=== PATIENT | male | born 1965 | race Hispanic/Latino ===

== ENCOUNTER 2021-10-12 13:35 | Inpatient (IN) | payer OTHER ==
[~2021-10-12] VITALS: Ht 172.7 cm; Wt 113.5 kg
[2021-10-12] VITALS (7 sets, daily range): BP systolic 104–129; BP diastolic 64–88
[2021-10-12] MEDS ORDERED: SODIUM CHLORIDE 0.9% 1000ML 1,000 ML IV STA (14:07)
[2021-10-12 14:37] LABS: BASOPHILS % 0.2 % (0.0-1.0); HEMATOCRIT 50.7 % (34.2-44.1); HEMOGLOBIN 16.2 g/dL (12.0-16.0); LYMPHOCYTES # (AUTO) 0.7 (1.0-3.2); LYMPHOCYTES % 10.2 % (18.0-39.1); MEAN CORPUSCULAR VOLUME 84.5 fL (81-99); MONOCYTES # (AUTO) 0.5 (0.2-0.8); MONOCYTES % 6.8 % (4.4-11.3); NEUTROPHILS # (AUTO) 5.5 (2.1-6.9); NEUTROPHILS % 82.5 % (38.7-80.0); PLATELET COUNT 155 x10e3/uL (140-360); RED CELL DISTRIBUTION WIDTH 14.8 % (11.7-14.4)
[2021-10-12 14:45] LABS: INR 0.96; PROTHROMBIN TIME 13.5 seconds (11.9-14.5)
[2021-10-12 14:46] LABS: PARTIAL THROMBOPLASTIN TIME 37.7 seconds (23.8-35.5)
[2021-10-12] MEDS: ASCORBIC ACID 500 MG TAB PO SCH (14:47)
[2021-10-12] MEDS: CEFTRIAXONE 2 GM in SODIUM CHLORIDE 0.9% 100 ML IV SCH (14:47)
[2021-10-12] MEDS ORDERED: DEXAMETHASONE SOD PHOS 10 MG/1 ML VIAL IV ONE (15:00)
[2021-10-12 15:36] LABS: ALANINE AMINOTRANSFERASE 43 IU/L (0-55); ALBUMIN 3.1 g/dL (3.5-5.0); ALBUMIN/GLOBULIN RATIO 0.7 (0.8-2.0); ALKALINE PHOSPHATASE 67 IU/L (40-150); BLOOD UREA NITROGEN 48 mg/dL (7-26); BUN/CREATININE RATIO 19 (6-25); CALCIUM 8.8 mg/dL (8.4-10.2); CARBON DIOXIDE 15 mmol/L (22-29); CHLORIDE 101 mmol/L (98-107); CREATINE KINASE 414 IU/L (29-168); EST GLOMERULAR FILTRATION RATE 20 ML/MIN (60-); GLUCOSE 250 mg/dL (74-118); MAGNESIUM 2.1 MG/DL (1.3-2.1); SODIUM 130 mmol/L (136-145)
[2021-10-12] MEDS ORDERED: SODIUM CHLORIDE 0.9% 1000ML 1,000 ML IV ONE (16:15)
[2021-10-12] MEDS: ENOXAPARIN 30 MG/0.3 ML SYR SC SCH (16:31)
[2021-10-12] MEDS: SODIUM CHLORIDE 0.9% 1000ML 1,000 ML IV SCH (18:11)
[2021-10-12] MEDS ORDERED: VASOTEC10 M1 PO (21:59)
[2021-10-12] MEDS ORDERED: ESIDRIX25 MG PO (21:59)
[2021-10-12] MEDS ORDERED: METFORMIN HCL500 MG PO (21:59)
[2021-10-13] VITALS (26 sets, daily range): BP systolic 99–157; BP diastolic 56–88
[2021-10-13 01:21] LABS: CREATINE KINASE 476 IU/L (30-200)
[2021-10-13 04:59] LABS: HEMATOCRIT 47.1 % (38.2-49.6); HEMOGLOBIN 14.9 g/dL (14.0-18.0); LYMPHOCYTES # (AUTO) 0.8 (1.0-3.2); LYMPHOCYTES % 14.8 % (18.0-39.1); MEAN CORPUSCULAR HGB CONC 31.6 g/dL (31-35); MEAN CORPUSCULAR VOLUME 85.5 fL (81-99); MONOCYTES # (AUTO) 0.4 (0.2-0.8); MONOCYTES % 7.7 % (4.4-11.3); NEUTROPHILS # (AUTO) 3.9 (2.1-6.9); NEUTROPHILS % 77.1 % (38.7-80.0); PLATELET COUNT 180 x10e3/uL (140-360); RED BLOOD COUNT 5.51 x10e6/uL (4.3-5.7); RED CELL DISTRIBUTION WIDTH 14.8 % (11.7-14.4)
[2021-10-13 05:40] LABS: ALBUMIN 2.8 g/dL (3.5-5.0); ALBUMIN/GLOBULIN RATIO 0.6 (0.8-2.0); ANION GAP 18.9 mmol/L (8-16); CALCIUM 8.5 mg/dL (8.4-10.2); CHOL/HDL RATIO 3.3 (3.9-4.7); CREATININE, SERUM 2.09 mg/dL (0.72-1.25); POTASSIUM 4.9 mmol/L (3.5-5.1)
[2021-10-13 06:16] LABS: CREATINE KINASE 464 IU/L (30-200); MAGNESIUM 2.4 MG/DL (1.3-2.1); PHOSPHORUS 4.2 MG/DL (2.3-4.7)
[2021-10-13] MEDS: ZINC SULFATE 50 MG CAP PO SCH (08:58)
[2021-10-13] MEDS: DEXAMETHASONE SOD PHOS 10 MG/1 ML VIAL IV SCH (08:58)
[2021-10-13] MEDS: ASCORBIC ACID 500 MG TAB PO SCH ×2 (08:58→17:39)
[2021-10-13] MEDS: SODIUM CHLORIDE 0.9% 1000ML 1,000 ML IV SCH (08:58)
[2021-10-13] MEDS: CEFTRIAXONE 2 GM in SODIUM CHLORIDE 0.9% 100 ML IV SCH (08:58)
[2021-10-13] MEDS ORDERED: DEXTROSE 50% SYRINGE 50 ML IV PRN (09:00)
[2021-10-13] MEDS: INSULIN REGULAR, HUMAN 100 UNIT/1 ML SQ SCH ×3 (12:40→21:19)
[2021-10-13 12:45] LABS: CREATINE KINASE MB 2.6 ng/mL (0-5.0)
[2021-10-13] MEDS ORDERED: REMDESIVIR 200MG 200 MG in SODIUM CHLORIDE 0.9% 100 ML IV ONE (14:00)
[2021-10-13] MEDS ORDERED: REMDESIVIR 100MG 200 MG in SODIUM CHLORIDE 0.9% 100 ML IV ONE (14:00)
[2021-10-13] MEDS ORDERED: SODIUM BICARBONATE 8.4% IV ONE (15:30)
[2021-10-13] MEDS ORDERED: SODIUM CHLORIDE 0.45% IV ONE (15:30)
[2021-10-13] MEDS: ENOXAPARIN 30 MG/0.3 ML SYR SC SCH (17:39)
[2021-10-13] MEDS: SODIUM BICARBONATE 650 MG TAB PO SCH (17:39)
[2021-10-14] VITALS (26 sets, daily range): BP systolic 106–147; BP diastolic 66–97
[2021-10-14 05:08] LABS: BASOPHILS % 0.1 % (0.0-1.0); HEMATOCRIT 44.7 % (38.2-49.6); HEMOGLOBIN 14.6 g/dL (14.0-18.0); LYMPHOCYTES # (AUTO) 0.6 (1.0-3.2); LYMPHOCYTES % 7.1 % (18.0-39.1); MEAN CORPUSCULAR HEMOGLOBIN 27.1 pg (28-32); MEAN CORPUSCULAR HGB CONC 32.7 g/dL (31-35); MEAN CORPUSCULAR VOLUME 82.9 fL (81-99); MONOCYTES # (AUTO) 0.6 (0.2-0.8); MONOCYTES % 6.4 % (4.4-11.3); NEUTROPHILS # (AUTO) 7.7 (2.1-6.9); NEUTROPHILS % 85.3 % (38.7-80.0); PLATELET COUNT 207 x10e3/uL (140-360); RED BLOOD COUNT 5.39 x10e6/uL (4.3-5.7); RED CELL DISTRIBUTION WIDTH 14.6 % (11.7-14.4)
[2021-10-14 05:32] LABS: ALBUMIN 2.6 g/dL (3.5-5.0); ALBUMIN/GLOBULIN RATIO 0.6 (0.8-2.0); ANION GAP 15.3 mmol/L (8-16); CALCIUM 8.8 mg/dL (8.4-10.2); CREATININE, SERUM 1.51 mg/dL (0.72-1.25); POTASSIUM 5.3 mmol/L (3.5-5.1)
[2021-10-14] MEDS: INSULIN REGULAR, HUMAN 100 UNIT/1 ML SQ SCH ×4 (07:37→21:14)
[2021-10-14] MEDS ORDERED: DEXMEDETOMIDINE 400MCG/NS100ML 100 ML IV PRN (07:45)
[2021-10-14] MEDS: DEXAMETHASONE SOD PHOS 10 MG/1 ML VIAL IV SCH (08:22)
[2021-10-14] MEDS: CEFTRIAXONE 2 GM in SODIUM CHLORIDE 0.9% 100 ML IV SCH (08:22)
[2021-10-14] MEDS: ZINC SULFATE 50 MG CAP PO SCH (08:22)
[2021-10-14] MEDS: ASCORBIC ACID 500 MG TAB PO SCH ×2 (08:22→17:52)
[2021-10-14] MEDS: SODIUM BICARBONATE 650 MG TAB PO SCH ×2 (08:22→17:51)
[2021-10-14] MEDS ORDERED: INSULIN GLARGINE 100 UNITS/ML VIAL SQ SCH (09:00)
[2021-10-14] MEDS ORDERED: VECURONIUM BROMIDE FOR INJ 20 MG VIAL ONE (12:35)
[2021-10-14] MEDS ORDERED: WATER STERILE 10 ML VIAL ONE (12:35)
[2021-10-14] MEDS ORDERED: SUCCINYLCHOLINE CHLORIDE 20 MG/ML 10ML VIAL ONE (12:35)
[2021-10-14] MEDS ORDERED: MIDAZOLAM HCL 2 MG/2 ML VIAL ONE (12:35)
[2021-10-14] MEDS ORDERED: ETOMIDATE 2 MG/ML 10 ML INJ IV ONE (12:35)
[2021-10-14] MEDS: REMDESIVIR 100MG 100 MG in SODIUM CHLORIDE 0.9% 100 ML IV SCH (13:59)
[2021-10-14] MEDS: BARICITINIB 2 MG TABLET PO SCH (13:59)
[2021-10-14] MEDS ORDERED: SOD POLYSTYRENE SULFONATE SUSP 15 GM/60 ML BTL PO ONE (15:30)
[2021-10-14] MEDS ORDERED: ENOXAPARIN 30 MG/0.3 ML SYR SC SCH (17:00)
[2021-10-14 17:40] LABS: ABG HCO3 20 mmol/L (22-26); ABG PCO2 31 mmHg (35-45); ABG PH 7.42 (7.35-7.45); ABG PO2 69 mmHg (80-105); ABG TCO2 21
[2021-10-14] MEDS: ENOXAPARIN SOD INJ 40 MG/0.4 ML SYR SC SCH (17:52)
[2021-10-14] MEDS: DEXMEDETOMIDINE 100 ML IV PRN (20:39)
[2021-10-15] VITALS (24 sets, daily range): BP systolic 111–150; BP diastolic 62–101
[2021-10-15 06:36] LABS: BASOPHILS % 0.2 % (0.0-1.0); HEMATOCRIT 47.9 % (38.2-49.6); HEMOGLOBIN 14.9 g/dL (14.0-18.0); LYMPHOCYTES # (AUTO) 0.7 (1.0-3.2); LYMPHOCYTES % 7.3 % (18.0-39.1); MEAN CORPUSCULAR HEMOGLOBIN 26.8 pg (28-32); MEAN CORPUSCULAR HGB CONC 31.1 g/dL (31-35); MONOCYTES # (AUTO) 0.6 (0.2-0.8); MONOCYTES % 5.8 % (4.4-11.3); NEUTROPHILS # (AUTO) 8.5 (2.1-6.9); NEUTROPHILS % 85.8 % (38.7-80.0); PLATELET COUNT 214 x10e3/uL (140-360); RED BLOOD COUNT 5.57 x10e6/uL (4.3-5.7); RED CELL DISTRIBUTION WIDTH 14.9 % (11.7-14.4)
[2021-10-15 07:17] LABS: ALBUMIN 2.6 g/dL (3.5-5.0); ALBUMIN/GLOBULIN RATIO 0.6 (0.8-2.0); ANION GAP 16.6 mmol/L (8-16); CREATININE, SERUM 1.24 mg/dL (0.72-1.25); POTASSIUM 5.6 mmol/L (3.5-5.1)
[2021-10-15] MEDS: INSULIN REGULAR, HUMAN 100 UNIT/1 ML SQ SCH ×6 (07:46→21:30)
[2021-10-15] MEDS ORDERED: INSULIN GLARGINE 100 UNITS/ML VIAL SQ SCH (09:00)
[2021-10-15] MEDS: SODIUM BICARBONATE 650 MG TAB PO SCH ×2 (11:29→17:00)
[2021-10-15] MEDS: ZINC SULFATE 50 MG CAP PO SCH (11:29)
[2021-10-15] MEDS: BARICITINIB 2 MG TABLET PO SCH (11:29)
[2021-10-15] MEDS: CEFTRIAXONE 2 GM in SODIUM CHLORIDE 0.9% 100 ML IV SCH (11:29)
[2021-10-15] MEDS: ASCORBIC ACID 500 MG TAB PO SCH ×2 (11:29→17:00)
[2021-10-15] MEDS: DEXAMETHASONE SOD PHOS 10 MG/1 ML VIAL IV SCH (11:29)
[2021-10-15] MEDS: REMDESIVIR 100MG 100 MG in SODIUM CHLORIDE 0.9% 100 ML IV SCH (14:11)
[2021-10-15] MEDS ORDERED: SOD POLYSTYRENE SULFONATE SUSP 15 GM/60 ML BTL PR NR (14:30)
[2021-10-15] MEDS ORDERED: FUROSEMIDE INJ 10 MG/ML 4 ML VIAL IV NR (14:30)
[2021-10-15] MEDS ORDERED: SODIUM CHLORIDE 0.45% 1,000 ML IV ONE (16:30)
[2021-10-15] MEDS: ENOXAPARIN SOD INJ 40 MG/0.4 ML SYR SC SCH (17:02)
[2021-10-15] MEDS ORDERED: FUROSEMIDE INJ 10 MG/ML 4 ML VIAL ONE (20:43)
[2021-10-16] VITALS (24 sets, daily range): BP systolic 84–147; BP diastolic 49–93
[2021-10-16] MEDS: DEXMEDETOMIDINE 100 ML IV PRN (00:16)
[2021-10-16 06:24] LABS: BASOPHILS % 0.2 % (0.0-1.0); HEMATOCRIT 50.7 % (38.2-49.6); LYMPHOCYTES # (AUTO) 0.7 (1.0-3.2); MEAN CORPUSCULAR HEMOGLOBIN 26.8 pg (28-32); MEAN CORPUSCULAR HGB CONC 31.6 g/dL (31-35); MEAN CORPUSCULAR VOLUME 85.1 fL (81-99); MONOCYTES # (AUTO) 0.7 (0.2-0.8); MONOCYTES % 4.9 % (4.4-11.3); NEUTROPHILS # (AUTO) 12.7 (2.1-6.9); NEUTROPHILS % 88.6 % (38.7-80.0); PLATELET COUNT 205 x10e3/uL (140-360); RED BLOOD COUNT 5.96 x10e6/uL (4.3-5.7); RED CELL DISTRIBUTION WIDTH 14.7 % (11.7-14.4)
[2021-10-16 06:52] LABS: ALBUMIN 2.6 g/dL (3.5-5.0); ALBUMIN/GLOBULIN RATIO 0.6 (0.8-2.0); ANION GAP 17.7 mmol/L (8-16); CALCIUM 8.8 mg/dL (8.4-10.2); CREATININE, SERUM 1.15 mg/dL (0.72-1.25); POTASSIUM 4.7 mmol/L (3.5-5.1)
[2021-10-16] MEDS ORDERED: ROCURONIUM 1250MG/NS 250 250 ML IV PRN (08:15)
[2021-10-16] MEDS ORDERED: PROPOFOL IV EMULSION 10MG/ML 100 ML ONE (08:39)
[2021-10-16] MEDS ORDERED: SODIUM CHLORIDE 0.9% 1000ML 1,000 ML ONE (08:45)
[2021-10-16] MEDS ORDERED: INSULIN GLARGINE 100 UNITS/ML VIAL SQ SCH (09:00)
[2021-10-16] MEDS: ASCORBIC ACID 500 MG TAB PO SCH ×2 (09:00→16:58)
[2021-10-16] MEDS: BARICITINIB 2 MG TABLET PO SCH (09:00)
[2021-10-16] MEDS: ZINC SULFATE 50 MG CAP PO SCH (09:00)
[2021-10-16] MEDS: PROPOFOL IV EMULSION 10MG/ML 100 ML IV SCH (09:15)
[2021-10-16] MEDS ORDERED: SODIUM CHLORIDE 0.45% 1,000 ML IV ONE (09:15)
[2021-10-16] MEDS: FENTANYL 2000MCG/NS 250 250 ML IV PRN ×2 (09:25→17:51)
[2021-10-16] MEDS: MIDAZOLAM HCL 5MG/ML 10ML VIAL 100 ML IV PRN ×3 (09:25→18:51)
[2021-10-16] MEDS: ROCURONIUM 1250MG/NS 250 250 ML IV PRN (09:29)
[2021-10-16] MEDS: CEFTRIAXONE 2 GM in SODIUM CHLORIDE 0.9% 100 ML IV SCH (10:16)
[2021-10-16] MEDS: DEXAMETHASONE SOD PHOS 10 MG/1 ML VIAL IV SCH (10:16)
[2021-10-16 11:58] LABS: ABG PCO2 40 mmHg (35-45); ABG PH 7.36 (7.35-7.45)
[2021-10-16 11:59] LABS: ABG HCO3 23 mmol/L (22-26); ABG PO2 76 mmHg (80-105); ABG TCO2 24
[2021-10-16] MEDS: INSULIN REGULAR, HUMAN 100 UNIT/1 ML SQ SCH ×2 (13:22→17:48)
[2021-10-16] MEDS ORDERED: SODIUM CHLORIDE 0.9% 250ML 500 ML ONE (14:16)
[2021-10-16] MEDS: REMDESIVIR 100MG 100 MG in SODIUM CHLORIDE 0.9% 100 ML IV SCH (14:17)
[2021-10-16] MEDS: ENOXAPARIN SOD INJ 40 MG/0.4 ML SYR SC SCH (16:58)
[2021-10-17] VITALS (28 sets, daily range): BP systolic 102–145; BP diastolic 45–76
[2021-10-17] MEDS: INSULIN REGULAR, HUMAN 100 UNIT/1 ML SQ SCH ×6 (00:44→23:42)
[2021-10-17] MEDS: MIDAZOLAM HCL 5MG/ML 10ML VIAL 100 ML IV PRN ×3 (04:30→19:48)
[2021-10-17] MEDS: FENTANYL 2000MCG/NS 250 250 ML IV PRN ×3 (04:30→19:49)
[2021-10-17 06:17] LABS: BASOPHILS % 0.1 % (0.0-1.0); EOSINOPHILS % 0.1 % (0.0-6.0); HEMATOCRIT 47.2 % (38.2-49.6); HEMOGLOBIN 14.8 g/dL (14.0-18.0); LYMPHOCYTES # (AUTO) 0.6 (1.0-3.2); LYMPHOCYTES % 4.2 % (18.0-39.1); MEAN CORPUSCULAR HGB CONC 31.4 g/dL (31-35); MEAN CORPUSCULAR VOLUME 86.1 fL (81-99); MONOCYTES # (AUTO) 0.6 (0.2-0.8); MONOCYTES % 3.9 % (4.4-11.3); NEUTROPHILS # (AUTO) 12.6 (2.1-6.9); NEUTROPHILS % 89.4 % (38.7-80.0); PLATELET COUNT 211 x10e3/uL (140-360); RED BLOOD COUNT 5.48 x10e6/uL (4.3-5.7); RED CELL DISTRIBUTION WIDTH 14.6 % (11.7-14.4)
[2021-10-17 07:00] LABS: ALBUMIN 2.1 g/dL (3.5-5.0); ALBUMIN/GLOBULIN RATIO 0.6 (0.8-2.0); ANION GAP 15.2 mmol/L (8-16); CALCIUM 7.9 mg/dL (8.4-10.2); CREATININE, SERUM 1.2 mg/dL (0.72-1.25); POTASSIUM 5.2 mmol/L (3.5-5.1)
[2021-10-17] MEDS: DEXAMETHASONE SOD PHOS 10 MG/1 ML VIAL IV SCH (08:46)
[2021-10-17] MEDS: CEFTRIAXONE 2 GM in SODIUM CHLORIDE 0.9% 100 ML IV SCH (08:46)
[2021-10-17] MEDS: ASCORBIC ACID 500 MG TAB PO SCH ×2 (08:47→18:32)
[2021-10-17] MEDS: ZINC SULFATE 50 MG CAP PO SCH (08:47)
[2021-10-17] MEDS: BARICITINIB 2 MG TABLET PO SCH (08:47)
[2021-10-17] MEDS: ROCURONIUM 1250MG/NS 250 250 ML IV PRN (08:52)
[2021-10-17] MEDS ORDERED: INSULIN GLARGINE 100 UNITS/ML VIAL SQ SCH (09:00)
[2021-10-17] MEDS: PROPOFOL IV EMULSION 10MG/ML 100 ML IV SCH (09:15)
[2021-10-17 10:24] LABS: ABG HCO3 24 mmol/L (22-26); ABG PCO2 48 mmHg (35-45); ABG PH 7.31 (7.35-7.45); ABG PO2 65 mmHg (80-105); ABG TCO2 25
[2021-10-17 12:49] LABS: ABG PH 7.36 (7.35-7.45)
[2021-10-17 12:50] LABS: ABG HCO3 24 mmol/L (22-26); ABG PCO2 42 mmHg (35-45); ABG PO2 59 mmHg (80-105); ABG TCO2 25
[2021-10-17] MEDS ORDERED: SOD POLYSTYRENE SULFONATE SUSP 15 GM/60 ML BTL PO ONE (13:00)
[2021-10-17] MEDS: REMDESIVIR 100MG 100 MG in SODIUM CHLORIDE 0.9% 100 ML IV SCH (15:01)
[2021-10-17] MEDS: ENOXAPARIN SOD INJ 40 MG/0.4 ML SYR SC SCH (18:32)
[2021-10-18] VITALS (27 sets, daily range): BP systolic 109–141; BP diastolic 63–76
[2021-10-18] MEDS: MIDAZOLAM HCL 5MG/ML 10ML VIAL 100 ML IV PRN ×5 (00:33→20:41)
[2021-10-18] MEDS: FENTANYL 2000MCG/NS 250 250 ML IV PRN ×3 (04:45→20:41)
[2021-10-18 05:15] LABS: BASOPHILS % 0.3 % (0.0-1.0); EOSINOPHILS % 0.3 % (0.0-6.0); HEMATOCRIT 45.6 % (38.2-49.6); HEMOGLOBIN 14.1 g/dL (14.0-18.0); LYMPHOCYTES # (AUTO) 0.8 (1.0-3.2); LYMPHOCYTES % 6.9 % (18.0-39.1); MEAN CORPUSCULAR HEMOGLOBIN 26.9 pg (28-32); MEAN CORPUSCULAR HGB CONC 30.9 g/dL (31-35); MEAN CORPUSCULAR VOLUME 86.9 fL (81-99); MONOCYTES # (AUTO) 0.6 (0.2-0.8); MONOCYTES % 5.1 % (4.4-11.3); NEUTROPHILS # (AUTO) 9.2 (2.1-6.9); NEUTROPHILS % 82.8 % (38.7-80.0); PLATELET COUNT 231 x10e3/uL (140-360); RED BLOOD COUNT 5.25 x10e6/uL (4.3-5.7)
[2021-10-18 05:35] LABS: ALBUMIN/GLOBULIN RATIO 0.6 (0.8-2.0); ANION GAP 11.1 mmol/L (8-16); CALCIUM 7.7 mg/dL (8.4-10.2); CREATININE, SERUM 1.23 mg/dL (0.72-1.25); POTASSIUM 5.1 mmol/L (3.5-5.1)
[2021-10-18] MEDS: INSULIN REGULAR, HUMAN 100 UNIT/1 ML SQ SCH ×3 (06:07→17:52)
[2021-10-18 07:38] LABS: ABG HCO3 23 mmol/L (22-26); ABG PCO2 36 mmHg (35-45); ABG PH 7.42 (7.35-7.45); ABG PO2 49 mmHg (80-105); ABG TCO2 25
[2021-10-18] MEDS: PROPOFOL IV EMULSION 10MG/ML 100 ML IV SCH (08:55)
[2021-10-18] MEDS: POLYETHYLENE GLYCOL 3350 17 GM PACK PO SCH (08:59)
[2021-10-18] MEDS: DEXAMETHASONE SOD PHOS 10 MG/1 ML VIAL IV SCH (08:59)
[2021-10-18] MEDS: BARICITINIB 2 MG TABLET PO SCH (08:59)
[2021-10-18] MEDS ORDERED: INSULIN GLARGINE 100 UNITS/ML VIAL SQ SCH (09:00)
[2021-10-18] MEDS: ASCORBIC ACID 500 MG TAB PO SCH ×2 (09:00→17:50)
[2021-10-18] MEDS: ZINC SULFATE 50 MG CAP PO SCH (09:00)
[2021-10-18] MEDS ORDERED: BISACODYL 10 MG SUPP PR ONE (09:00)
[2021-10-18] MEDS: ROCURONIUM 1250MG/NS 250 250 ML IV PRN (10:38)
[2021-10-18] MEDS: ENOXAPARIN SOD INJ 40 MG/0.4 ML SYR SC SCH (17:51)
[2021-10-19] VITALS (25 sets, daily range): BP systolic 104–130; BP diastolic 56–72
[2021-10-19] MEDS: INSULIN REGULAR, HUMAN 100 UNIT/1 ML SQ SCH ×2 (00:35→05:40)
[2021-10-19] MEDS: MIDAZOLAM HCL 5MG/ML 10ML VIAL 100 ML IV PRN ×5 (02:16→23:57)
[2021-10-19] MEDS: FENTANYL 2000MCG/NS 250 250 ML IV PRN ×3 (04:44→21:55)
[2021-10-19 05:27] LABS: BASOPHILS % 0.3 % (0.0-1.0); EOSINOPHILS % 0.2 % (0.0-6.0); HEMATOCRIT 45.5 % (38.2-49.6); LYMPHOCYTES # (AUTO) 0.8 (1.0-3.2); LYMPHOCYTES % 6.3 % (18.0-39.1); MEAN CORPUSCULAR HGB CONC 30.8 g/dL (31-35); MEAN CORPUSCULAR VOLUME 87.8 fL (81-99); MONOCYTES # (AUTO) 0.9 (0.2-0.8); MONOCYTES % 6.9 % (4.4-11.3); NEUTROPHILS # (AUTO) 10.2 (2.1-6.9); NEUTROPHILS % 80.9 % (38.7-80.0); PLATELET COUNT 246 x10e3/uL (140-360); RED BLOOD COUNT 5.18 x10e6/uL (4.3-5.7); RED CELL DISTRIBUTION WIDTH 14.8 % (11.7-14.4)
[2021-10-19 06:06] LABS: ALBUMIN/GLOBULIN RATIO 0.6 (0.8-2.0); ANION GAP 8.6 mmol/L (8-16); CALCIUM 8.1 mg/dL (8.4-10.2); CREATININE, SERUM 1.21 mg/dL (0.72-1.25); POTASSIUM 5.6 mmol/L (3.5-5.1)
[2021-10-19 08:03] LABS: ABG PCO2 41 mmHg (35-45); ABG PH 7.41 (7.35-7.45)
[2021-10-19 08:04] LABS: ABG HCO3 26 mmol/L (22-26); ABG PO2 96 mmHg (80-105); ABG TCO2 27
[2021-10-19] MEDS ORDERED: ACETAMINOPHEN 325 MG TAB ONE (08:07)
[2021-10-19] MEDS ORDERED: INSULIN REGULAR, HUMAN 3ML VL 100 UNIT in SODIUM CHLORIDE 0.9% 99 ML IV SCH ×2 (08:30)
[2021-10-19] MEDS ORDERED: DEXTROSE 50% SYRINGE 50 ML IV PRN (08:30)
[2021-10-19] MEDS ORDERED: SOD POLYSTYRENE SULFONATE SUSP 15 GM/60 ML BTL PO ONE (09:00)
[2021-10-19] MEDS ORDERED: INSULIN GLARGINE 100 UNITS/ML VIAL SQ SCH (09:00)
[2021-10-19] MEDS: ASCORBIC ACID 500 MG TAB PO SCH ×2 (09:10→16:09)
[2021-10-19] MEDS: ACETAMINOPHEN 325 MG TAB PO PRN (09:10)
[2021-10-19] MEDS: BARICITINIB 2 MG TABLET PO SCH (09:10)
[2021-10-19] MEDS: ZINC SULFATE 50 MG CAP PO SCH (09:10)
[2021-10-19] MEDS: POLYETHYLENE GLYCOL 3350 17 GM PACK PO SCH (09:34)
[2021-10-19] MEDS: PROPOFOL IV EMULSION 10MG/ML 100 ML IV SCH (09:35)
[2021-10-19] MEDS: ROCURONIUM 1250MG/NS 250 250 ML IV PRN (12:28)
[2021-10-19] MEDS ORDERED: FUROSEMIDE INJ 10 MG/ML 4 ML VIAL IV ONE (16:00)
[2021-10-19] MEDS: ENOXAPARIN SOD INJ 40 MG/0.4 ML SYR SC SCH (16:09)
[2021-10-20] VITALS (26 sets, daily range): BP systolic 98–162; BP diastolic 41–83
[2021-10-20] MEDS: INSULIN REGULAR, HUMAN 3ML VL 100 UNIT in SODIUM CHLORIDE 0.9% 99 ML IV SCH ×2 (04:00)
[2021-10-20] MEDS: MIDAZOLAM HCL 5MG/ML 10ML VIAL 100 ML IV PRN ×4 (06:00→21:17)
[2021-10-20] MEDS: FENTANYL 2000MCG/NS 250 250 ML IV PRN ×2 (06:17→14:12)
[2021-10-20 06:39] LABS: BASOPHILS % 0.5 % (0.0-1.0); EOSINOPHILS # (AUTO) 0.3 (0.0-0.4); HEMATOCRIT 34.9 % (38.2-49.6); HEMOGLOBIN 10.7 g/dL (14.0-18.0); LYMPHOCYTES # (AUTO) 2.3 (1.0-3.2); LYMPHOCYTES % 28.4 % (18.0-39.1); MEAN CORPUSCULAR HEMOGLOBIN 29.7 pg (28-32); MEAN CORPUSCULAR HGB CONC 30.7 g/dL (31-35); MEAN CORPUSCULAR VOLUME 96.9 fL (81-99); MONOCYTES # (AUTO) 0.3 (0.2-0.8); MONOCYTES % 3.5 % (4.4-11.3); NEUTROPHILS % 60.3 % (38.7-80.0); PLATELET COUNT 401 x10e3/uL (140-360); RED CELL DISTRIBUTION WIDTH 14.4 % (11.7-14.4)
[2021-10-20 07:13] LABS: MAGNESIUM 2.3 MG/DL (1.3-2.1); PHOSPHORUS 3.3 MG/DL (2.3-4.7)
[2021-10-20 07:16] LABS: ALBUMIN 1.9 g/dL (3.5-5.0); ALBUMIN/GLOBULIN RATIO 0.4 (0.8-2.0); CALCIUM 8.3 mg/dL (8.4-10.2); CREATININE, SERUM 0.55 mg/dL (0.72-1.25)
[2021-10-20] MEDS: POLYETHYLENE GLYCOL 3350 17 GM PACK PO SCH (08:02)
[2021-10-20] MEDS: BARICITINIB 2 MG TABLET PO SCH (08:03)
[2021-10-20] MEDS: ASCORBIC ACID 500 MG TAB PO SCH ×2 (08:03→16:41)
[2021-10-20] MEDS: PROPOFOL IV EMULSION 10MG/ML 100 ML IV SCH (08:03)
[2021-10-20] MEDS: ZINC SULFATE 50 MG CAP PO SCH (08:03)
[2021-10-20 08:54] LABS: ABG HCO3 26 mmol/L (22-26); ABG PCO2 40 mmHg (35-45); ABG PH 7.42 (7.35-7.45); ABG PO2 92 mmHg (80-105); ABG TCO2 27
[2021-10-20] MEDS ORDERED: ENOXAPARIN SODIUM INJ 100 MG/ML SYR SC SCH (09:30)
[2021-10-20] MEDS: ACETAMINOPHEN 325 MG TAB PO PRN ×2 (10:12→21:15)
[2021-10-20 13:58] LABS: ABG PCO2 43 mmHg (35-45); ABG PH 7.39 (7.35-7.45); ABG PO2 85 mmHg (80-105)
[2021-10-20 13:59] LABS: ABG HCO3 26 mmol/L (22-26); ABG TCO2 27
[2021-10-20] MEDS: ROCURONIUM 1250MG/NS 250 250 ML IV PRN (14:02)
[2021-10-20] MEDS: ENOXAPARIN SODIUM INJ 100 MG/ML SYR SC SCH (22:40)
[2021-10-21] VITALS (25 sets, daily range): BP systolic 109–170; BP diastolic 56–91
[2021-10-21] MEDS: MIDAZOLAM HCL 5MG/ML 10ML VIAL 100 ML IV PRN ×4 (03:30→21:51)
[2021-10-21] MEDS: INSULIN REGULAR, HUMAN 3ML VL 100 UNIT in SODIUM CHLORIDE 0.9% 99 ML IV SCH ×2 (04:00)
[2021-10-21] MEDS ORDERED: ACETAMINOPHEN 1000 MG/100 ML IV STA (04:03)
[2021-10-21 04:26] LABS: BASOPHILS % 0.3 % (0.0-1.0); EOSINOPHILS # (AUTO) 0.2 (0.0-0.4); HEMATOCRIT 47.2 % (38.2-49.6); HEMOGLOBIN 14.1 g/dL (14.0-18.0); LYMPHOCYTES # (AUTO) 0.8 (1.0-3.2); LYMPHOCYTES % 5.4 % (18.0-39.1); MEAN CORPUSCULAR HEMOGLOBIN 27.1 pg (28-32); MEAN CORPUSCULAR HGB CONC 29.9 g/dL (31-35); MONOCYTES % 6.3 % (4.4-11.3); NEUTROPHILS # (AUTO) 12.9 (2.1-6.9); NEUTROPHILS % 84.5 % (38.7-80.0); PLATELET COUNT 281 x10e3/uL (140-360); RED BLOOD COUNT 5.21 x10e6/uL (4.3-5.7); RED CELL DISTRIBUTION WIDTH 15.5 % (11.7-14.4)
[2021-10-21 04:34] LABS: MEAN CORPUSCULAR VOLUME 90.6 fL (81-99)
[2021-10-21 04:45] LABS: ALBUMIN 1.8 g/dL (3.5-5.0); ALBUMIN/GLOBULIN RATIO 0.5 (0.8-2.0); ANION GAP 14.7 mmol/L (8-16); CALCIUM 8.4 mg/dL (8.4-10.2); POTASSIUM 4.7 mmol/L (3.5-5.1)
[2021-10-21 04:47] LABS: CREATININE, SERUM 1.05 mg/dL (0.72-1.25)
[2021-10-21 04:56] LABS: MAGNESIUM 1.7 MG/DL (1.3-2.1); PHOSPHORUS 3.5 MG/DL (2.3-4.7)
[2021-10-21] MEDS: PROPOFOL IV EMULSION 10MG/ML 100 ML IV SCH ×3 (05:30→21:50)
[2021-10-21] MEDS ORDERED: ACETAMINOPHEN 1000 MG/100 ML 100 ML IV ONE (07:12)
[2021-10-21] MEDS: ZINC SULFATE 50 MG CAP PO SCH (08:45)
[2021-10-21] MEDS: POLYETHYLENE GLYCOL 3350 17 GM PACK PO SCH (08:45)
[2021-10-21] MEDS: ASCORBIC ACID 500 MG TAB PO SCH ×2 (08:45→17:30)
[2021-10-21] MEDS: ENOXAPARIN SODIUM INJ 100 MG/ML SYR SC SCH ×2 (08:46→21:30)
[2021-10-21] MEDS: FENTANYL 2000MCG/NS 250 250 ML IV PRN ×2 (08:47→16:11)
[2021-10-21 09:59] LABS: ABG HCO3 25 mmol/L (22-26); ABG PCO2 46 mmHg (35-45); ABG PH 7.34 (7.35-7.45); ABG PO2 66 mmHg (80-105); ABG TCO2 26
[2021-10-21] MEDS ORDERED: DEXTROSE 5% 1,000 ML IV ONE (15:15)
[2021-10-21] MEDS ORDERED: MAGNESIUM SULFATE 2GM/50ML 50 ML IV ONE (15:15)
[2021-10-21] MEDS: ROCURONIUM 1250MG/NS 250 250 ML IV PRN (16:12)
[2021-10-21] MEDS: PIPERACILLIN/TAZOBACTAM 3.375 GM in SODIUM CHLORIDE 0.9% 50ML 50 ML IV SCH ×2 (16:14→21:30)
[2021-10-22] VITALS (24 sets, daily range): BP systolic 101–146; BP diastolic 48–80
[2021-10-22] MEDS: ACETAMINOPHEN 325 MG TAB PO PRN (00:50)
[2021-10-22] MEDS: FENTANYL 2000MCG/NS 250 250 ML IV PRN ×3 (02:45→21:22)
[2021-10-22] MEDS: PROPOFOL IV EMULSION 10MG/ML 100 ML IV SCH ×4 (03:09→18:55)
[2021-10-22] MEDS: INSULIN REGULAR, HUMAN 3ML VL 100 UNIT in SODIUM CHLORIDE 0.9% 99 ML IV SCH ×2 (04:40)
[2021-10-22] MEDS: MIDAZOLAM HCL 5MG/ML 10ML VIAL 100 ML IV PRN ×2 (04:43→11:24)
[2021-10-22] MEDS: PIPERACILLIN/TAZOBACTAM 3.375 GM in SODIUM CHLORIDE 0.9% 50ML 50 ML IV SCH ×3 (05:23→22:45)
[2021-10-22 05:53] LABS: BASOPHILS % 0.2 % (0.0-1.0); EOSINOPHILS # (AUTO) 0.1 (0.0-0.4); EOSINOPHILS % 0.8 % (0.0-6.0); HEMATOCRIT 44.5 % (38.2-49.6); LYMPHOCYTES # (AUTO) 0.7 (1.0-3.2); LYMPHOCYTES % 3.9 % (18.0-39.1); MEAN CORPUSCULAR HEMOGLOBIN 27.1 pg (28-32); MEAN CORPUSCULAR HGB CONC 29.2 g/dL (31-35); MEAN CORPUSCULAR VOLUME 92.9 fL (81-99); MONOCYTES # (AUTO) 0.6 (0.2-0.8); MONOCYTES % 3.3 % (4.4-11.3); NEUTROPHILS % 90.8 % (38.7-80.0); PLATELET COUNT 232 x10e3/uL (140-360); RED BLOOD COUNT 4.79 x10e6/uL (4.3-5.7); RED CELL DISTRIBUTION WIDTH 15.8 % (11.7-14.4)
[2021-10-22 06:32] LABS: ALBUMIN 1.4 g/dL (3.5-5.0); ALBUMIN/GLOBULIN RATIO 0.3 (0.8-2.0); ANION GAP 12.2 mmol/L (8-16); CALCIUM 8.2 mg/dL (8.4-10.2); CREATININE, SERUM 1.65 mg/dL (0.72-1.25); POTASSIUM 5.2 mmol/L (3.5-5.1)
[2021-10-22] MEDS: ENOXAPARIN SODIUM INJ 100 MG/ML SYR SC SCH ×2 (08:21→21:45)
[2021-10-22 08:36] LABS: ABG PCO2 56 mmHg (35-45); ABG PH 7.27 (7.35-7.45); ABG PO2 56 mmHg (80-105)
[2021-10-22 08:37] LABS: ABG HCO3 25 mmol/L (22-26); ABG TCO2 27
[2021-10-22] MEDS ORDERED: BALSAM PERU/CASTOR OIL 60 GM OINT...G. TP SCH (09:00)
[2021-10-22] MEDS: ASCORBIC ACID 500 MG TAB PO SCH ×2 (09:16→16:52)
[2021-10-22] MEDS: ZINC SULFATE 50 MG CAP PO SCH (09:16)
[2021-10-22] MEDS: BALSAM PERU/CASTOR OIL 60 GM OINT...G. TP SCH (09:16)
[2021-10-22] MEDS: POLYETHYLENE GLYCOL 3350 17 GM PACK PO SCH (09:16)
[2021-10-22] MEDS ORDERED: SODIUM CHLORIDE 0.9% 250ML 500 ML IV PRN (11:00)
[2021-10-22] MEDS ORDERED: HEPARIN SOD (PORCINE) 1000 UNIT/ML SDV IV PRN (11:00)
[2021-10-22] MEDS ORDERED: MANNITOL 25% 12.5GM/50 ML VIAL IV PRN (11:00)
[2021-10-22] MEDS ORDERED: ALBUMIN 25% 12.5GM 0.25 GM/ML BTL IV PRN (11:00)
[2021-10-22] MEDS ORDERED: SODIUM CHLORIDE 0.9% 1000ML 2,000 ML IV PRN (11:00)
[2021-10-22 12:13] LABS: LYMPHOCYTES % (MANUAL) 4 % (19-48); MONOCYTES % (MANUAL) 3 % (3.4-9.0); NEUTROPHILS % (MANUAL) 93 % (40-74); PLATELET ESTIMATE ADEQUATE; PLATELET MORPHOLOGY COMMENT NORMAL; RBC MORPHOLOGY COMMENT NORMAL
[2021-10-22] MEDS ORDERED: NOREPINEPHRINE 8 MG/D5W 250 ML 250 ML ONE (13:29)
[2021-10-22] MEDS: NOREPINEPHRINE 8 MG/D5W 250 ML 250 ML IV SCH (13:31)
[2021-10-22] MEDS: ROCURONIUM 1250MG/NS 250 250 ML IV PRN (18:56)
[2021-10-22] MEDS ORDERED: LACTULOSE SYRUP 20 GM/30 ML UDC PO ONE (19:30)
[2021-10-22] MEDS: ACETAMINOPHEN 325 MG/10 ML UDC NG PRN (23:17)
[2021-10-23] VITALS (26 sets, daily range): BP systolic 89–147; BP diastolic 40–70
[2021-10-23] MEDS: MIDAZOLAM HCL 5MG/ML 10ML VIAL 100 ML IV PRN ×4 (00:19→18:05)
[2021-10-23] MEDS: PROPOFOL IV EMULSION 10MG/ML 100 ML IV SCH ×2 (05:50→18:04)
[2021-10-23] MEDS: FENTANYL 2000MCG/NS 250 250 ML IV PRN ×2 (05:54→15:39)
[2021-10-23 07:07] LABS: BASOPHILS # (AUTO) 0.1 (0.0-0.1); BASOPHILS % 0.3 % (0.0-1.0); EOSINOPHILS # (AUTO) 0.2 (0.0-0.4); HEMOGLOBIN 12.3 g/dL (14.0-18.0); LYMPHOCYTES # (AUTO) 0.8 (1.0-3.2); LYMPHOCYTES % 4.3 % (18.0-39.1); MEAN CORPUSCULAR HEMOGLOBIN 27.4 pg (28-32); MEAN CORPUSCULAR HGB CONC 28.6 g/dL (31-35); MEAN CORPUSCULAR VOLUME 95.8 fL (81-99); MONOCYTES % 4.9 % (4.4-11.3); NEUTROPHILS % 87.5 % (38.7-80.0); PLATELET COUNT 266 x10e3/uL (140-360); RED BLOOD COUNT 4.49 x10e6/uL (4.3-5.7); RED CELL DISTRIBUTION WIDTH 16.3 % (11.7-14.4)
[2021-10-23 07:22] LABS: ALBUMIN 1.3 g/dL (3.5-5.0); ALBUMIN/GLOBULIN RATIO 0.3 (0.8-2.0); ANION GAP 18.8 mmol/L (8-16); CALCIUM 8.4 mg/dL (8.4-10.2); CREATININE, SERUM 4.21 mg/dL (0.72-1.25); POTASSIUM 5.8 mmol/L (3.5-5.1)
[2021-10-23] MEDS: BALSAM PERU/CASTOR OIL 60 GM OINT...G. TP SCH (09:00)
[2021-10-23 09:02] LABS: ABG PH 7.16 (7.35-7.45)
[2021-10-23 09:03] LABS: ABG HCO3 26 mmol/L (22-26); ABG PCO2 73 mmHg (35-45); ABG PO2 49 mmHg (80-105); ABG TCO2 28
[2021-10-23] MEDS: POLYETHYLENE GLYCOL 3350 17 GM PACK PO SCH (09:19)
[2021-10-23] MEDS: PIPERACILLIN/TAZOBACTAM 3.375 GM in SODIUM CHLORIDE 0.9% 50ML 50 ML IV SCH ×2 (09:19→21:16)
[2021-10-23] MEDS: ZINC SULFATE 50 MG CAP PO SCH (09:19)
[2021-10-23] MEDS: ASCORBIC ACID 500 MG TAB PO SCH ×2 (09:19→16:59)
[2021-10-23] MEDS ORDERED: ACETAMINOPHEN 1000 MG/100 ML IV ONE (09:30)
[2021-10-23] MEDS: LINEZOLID 600 MG/D5W 300ML 300 ML IV SCH ×2 (10:50→22:20)
[2021-10-23] MEDS: HEPARIN 25,000 UNIT 1,500 UNIT in DEXTROSE 5% 250ML 250 ML IV SCH (10:55)
[2021-10-23] MEDS: NOREPINEPHRINE 8 MG/D5W 250 ML 250 ML IV SCH ×2 (11:25→18:04)
[2021-10-23 11:51] LABS: ABG HCO3 24 mmol/L (22-26); ABG PCO2 60 mmHg (35-45); ABG PH 7.21 (7.35-7.45); ABG PO2 60 mmHg (80-105); ABG TCO2 26
[2021-10-23] MEDS: INSULIN REGULAR, HUMAN 3ML VL 100 UNIT in SODIUM CHLORIDE 0.9% 99 ML IV SCH ×4 (16:31→21:18)
[2021-10-23] MEDS: ROCURONIUM 1250MG/NS 250 250 ML IV PRN (18:04)
[2021-10-24] VITALS (28 sets, daily range): BP systolic 77–134; BP diastolic 48–72
[2021-10-24] MEDS: INSULIN REGULAR, HUMAN 3ML VL 100 UNIT in SODIUM CHLORIDE 0.9% 99 ML IV SCH ×4 (01:00→05:07)
[2021-10-24] MEDS: FENTANYL 2000MCG/NS 250 250 ML IV PRN ×3 (01:09→18:27)
[2021-10-24] MEDS: MIDAZOLAM HCL 5MG/ML 10ML VIAL 100 ML IV PRN ×4 (02:02→20:20)
[2021-10-24] MEDS: PROPOFOL IV EMULSION 10MG/ML 100 ML IV SCH ×2 (02:54→12:22)
[2021-10-24] MEDS: ACETAMINOPHEN 325 MG/10 ML UDC NG PRN ×2 (04:50→15:18)
[2021-10-24 05:57] LABS: BASOPHILS # (AUTO) 0.1 (0.0-0.1); BASOPHILS % 0.3 % (0.0-1.0); EOSINOPHILS # (AUTO) 0.2 (0.0-0.4); EOSINOPHILS % 1.2 % (0.0-6.0); HEMATOCRIT 38.3 % (38.2-49.6); HEMOGLOBIN 11.2 g/dL (14.0-18.0); LYMPHOCYTES # (AUTO) 0.8 (1.0-3.2); LYMPHOCYTES % 3.9 % (18.0-39.1); MEAN CORPUSCULAR HGB CONC 29.2 g/dL (31-35); MEAN CORPUSCULAR VOLUME 92.3 fL (81-99); MONOCYTES # (AUTO) 1.4 (0.2-0.8); MONOCYTES % 6.9 % (4.4-11.3); NEUTROPHILS # (AUTO) 17.1 (2.1-6.9); NEUTROPHILS % 84.9 % (38.7-80.0); PLATELET COUNT 301 x10e3/uL (140-360); RED BLOOD COUNT 4.15 x10e6/uL (4.3-5.7); RED CELL DISTRIBUTION WIDTH 16.1 % (11.7-14.4)
[2021-10-24] MEDS: NOREPINEPHRINE 8 MG/D5W 250 ML 250 ML IV SCH ×4 (06:18→23:00)
[2021-10-24 06:26] LABS: ALBUMIN 1.2 g/dL (3.5-5.0); ALBUMIN/GLOBULIN RATIO 0.2 (0.8-2.0); CREATININE, SERUM 4.66 mg/dL (0.72-1.25)
[2021-10-24 06:45] LABS: ABG PH 7.25 (7.35-7.45)
[2021-10-24 06:46] LABS: ABG HCO3 24 mmol/L (22-26); ABG PCO2 55 mmHg (35-45); ABG PO2 53 mmHg (80-105); ABG TCO2 26
[2021-10-24] MEDS ORDERED: HEPARIN 25,000 UNIT DRIP IV ONE (07:20)
[2021-10-24] MEDS: POLYETHYLENE GLYCOL 3350 17 GM PACK PO SCH (08:04)
[2021-10-24] MEDS: PIPERACILLIN/TAZOBACTAM 3.375 GM in SODIUM CHLORIDE 0.9% 50ML 50 ML IV SCH ×2 (08:04→20:43)
[2021-10-24] MEDS: ASCORBIC ACID 500 MG TAB PO SCH ×2 (08:04→16:02)
[2021-10-24] MEDS: ZINC SULFATE 50 MG CAP PO SCH (08:04)
[2021-10-24] MEDS: BALSAM PERU/CASTOR OIL 60 GM OINT...G. TP SCH (08:04)
[2021-10-24 08:07] LABS: EOSINOPHILS % (MANUAL) 1 % (0-7); LYMPHOCYTES % (MANUAL) 4 % (19-48); MONOCYTES % (MANUAL) 6 % (3.4-9.0); NEUTROPHILS % (MANUAL) 89 % (40-74); PLATELET ESTIMATE ADEQUATE
[2021-10-24 08:08] LABS: PLATELET MORPHOLOGY COMMENT NORMAL; RBC MORPHOLOGY COMMENT NORMAL
[2021-10-24] MEDS: LINEZOLID 600 MG/D5W 300ML 300 ML IV SCH ×2 (09:39→22:42)
[2021-10-24] MEDS ORDERED: MAGNESIUM HYDROXIDE 30 ML UDC PO ONE (11:00)
[2021-10-24] MEDS ORDERED: BISACODYL 10 MG SUPP PR ONE (11:00)
[2021-10-24 12:25] LABS: ABG HCO3 30 mmol/L (22-26); ABG PCO2 63 mmHg (35-45); ABG PH 7.29 (7.35-7.45); ABG PO2 43 mmHg (80-105); ABG TCO2 32
[2021-10-24] MEDS: HEPARIN 25,000 UNIT 1,500 UNIT in DEXTROSE 5% 250ML 250 ML IV SCH (12:26)
[2021-10-24] MEDS ORDERED: VASOPRESSIN 60 UNIT in DEXTROSE 5% 50ML 57 ML IV PRN (14:30)
[2021-10-24] MEDS ORDERED: SODIUM CHLORIDE 0.9% 250ML 250 ML ONE (20:16)
[2021-10-24] MEDS: ROCURONIUM 1250MG/NS 250 250 ML IV PRN (23:00)
[2021-10-25] VITALS (28 sets, daily range): BP systolic 85–129; BP diastolic 48–76
[2021-10-25] MEDS: INSULIN REGULAR, HUMAN 3ML VL 100 UNIT in SODIUM CHLORIDE 0.9% 99 ML IV SCH ×2 (00:47)
[2021-10-25] MEDS ORDERED: SODIUM CHLORIDE 0.9% 1000ML 1,000 ML ONE (02:10)
[2021-10-25] MEDS: MIDAZOLAM HCL 5MG/ML 10ML VIAL 100 ML IV PRN ×4 (02:33→20:30)
[2021-10-25] MEDS: FENTANYL 2000MCG/NS 250 250 ML IV PRN ×3 (03:25→21:19)
[2021-10-25] MEDS: NOREPINEPHRINE 8 MG/D5W 250 ML 250 ML IV SCH ×2 (03:25→20:42)
[2021-10-25 05:52] LABS: BASOPHILS # (AUTO) 0.1 (0.0-0.1); BASOPHILS % 0.4 % (0.0-1.0); EOSINOPHILS # (AUTO) 0.2 (0.0-0.4); EOSINOPHILS % 0.9 % (0.0-6.0); HEMATOCRIT 30.8 % (38.2-49.6); HEMOGLOBIN 9.7 g/dL (14.0-18.0); LYMPHOCYTES # (AUTO) 1.3 (1.0-3.2); LYMPHOCYTES % 6.5 % (18.0-39.1); MEAN CORPUSCULAR HEMOGLOBIN 27.3 pg (28-32); MEAN CORPUSCULAR HGB CONC 31.5 g/dL (31-35); MEAN CORPUSCULAR VOLUME 86.8 fL (81-99); MONOCYTES # (AUTO) 2.1 (0.2-0.8); MONOCYTES % 10.4 % (4.4-11.3); NEUTROPHILS % 78.1 % (38.7-80.0); PLATELET COUNT 300 x10e3/uL (140-360); RED BLOOD COUNT 3.55 x10e6/uL (4.3-5.7); RED CELL DISTRIBUTION WIDTH 15.8 % (11.7-14.4)
[2021-10-25 06:15] LABS: ALBUMIN 1.1 g/dL (3.5-5.0); ALBUMIN/GLOBULIN RATIO 0.2 (0.8-2.0); CALCIUM 7.7 mg/dL (8.4-10.2); POTASSIUM 5.2 mmol/L (3.5-5.1)
[2021-10-25 06:36] LABS: ANION GAP 22.2 mmol/L (8-16); CREATININE, SERUM 4.71 mg/dL (0.72-1.25)
[2021-10-25] MEDS: POLYETHYLENE GLYCOL 3350 17 GM PACK PO SCH (07:58)
[2021-10-25] MEDS: ZINC SULFATE 50 MG CAP PO SCH (08:00)
[2021-10-25] MEDS: ASCORBIC ACID 500 MG TAB PO SCH ×2 (08:00→16:20)
[2021-10-25] MEDS: PIPERACILLIN/TAZOBACTAM 3.375 GM in SODIUM CHLORIDE 0.9% 50ML 50 ML IV SCH ×2 (08:00→20:20)
[2021-10-25] MEDS: BALSAM PERU/CASTOR OIL 60 GM OINT...G. TP SCH (08:23)
[2021-10-25 09:00] LABS: ABG HCO3 24 mmol/L (22-26); ABG PCO2 51 mmHg (35-45); ABG PH 7.27 (7.35-7.45); ABG PO2 56 mmHg (80-105)
[2021-10-25 09:01] LABS: ABG TCO2 25
[2021-10-25] MEDS: LINEZOLID 600 MG/D5W 300ML 300 ML IV SCH (09:10)
[2021-10-25] MEDS: PROPOFOL IV EMULSION 10MG/ML 100 ML IV SCH (09:11)
[2021-10-25 09:51] LABS: BAND NEUTROPHILS % (MANUAL) 1 %; EOSINOPHILS % (MANUAL) 2 % (0-7); LYMPHOCYTES % (MANUAL) 5 % (19-48); MONOCYTES % (MANUAL) 2 % (3.4-9.0); NEUTROPHILS % (MANUAL) 90 % (40-74); PLATELET ESTIMATE ADEQUATE; PLATELET MORPHOLOGY COMMENT NORMAL; RBC MORPHOLOGY COMMENT NORMAL
[2021-10-25] MEDS ORDERED: FUROSEMIDE INJ 10 MG/ML 4 ML VIAL IV NR (14:15)
[2021-10-25] MEDS ORDERED: SOD POLYSTYRENE SULFONATE SUSP 15 GM/60 ML BTL PO NR (14:15)
[2021-10-25] MEDS: ENOXAPARIN 30 MG/0.3 ML SYR SC SCH (16:20)
[2021-10-25] MEDS: FAMOTIDINE 20 MG/2 ML VIAL IV SCH (16:20)
[2021-10-25 17:31] LABS: BASOPHILS # (AUTO) 0.1 (0.0-0.1); BASOPHILS % 0.4 % (0.0-1.0); EOSINOPHILS # (AUTO) 0.2 (0.0-0.4); EOSINOPHILS % 0.9 % (0.0-6.0); HEMATOCRIT 30.1 % (38.2-49.6); HEMOGLOBIN 9.1 g/dL (14.0-18.0); LYMPHOCYTES # (AUTO) 1.4 (1.0-3.2); LYMPHOCYTES % 5.4 % (18.0-39.1); MEAN CORPUSCULAR HEMOGLOBIN 27.2 pg (28-32); MEAN CORPUSCULAR HGB CONC 30.2 g/dL (31-35); MEAN CORPUSCULAR VOLUME 89.9 fL (81-99); MONOCYTES # (AUTO) 2.4 (0.2-0.8); MONOCYTES % 9.3 % (4.4-11.3); NEUTROPHILS # (AUTO) 20.7 (2.1-6.9); NEUTROPHILS % 79.3 % (38.7-80.0); PLATELET COUNT 344 x10e3/uL (140-360); RED BLOOD COUNT 3.35 x10e6/uL (4.3-5.7); RED CELL DISTRIBUTION WIDTH 15.8 % (11.7-14.4)
[2021-10-26] VITALS (21 sets, daily range): BP systolic 81–140; BP diastolic 47–75
[2021-10-26] MEDS: ROCURONIUM 1250MG/NS 250 250 ML IV PRN (01:20)
[2021-10-26] MEDS: NOREPINEPHRINE 8 MG/D5W 250 ML 250 ML IV SCH ×3 (01:30→13:34)
[2021-10-26] MEDS: INSULIN REGULAR, HUMAN 3ML VL 100 UNIT in SODIUM CHLORIDE 0.9% 99 ML IV SCH ×2 (01:36)
[2021-10-26] MEDS: MIDAZOLAM HCL 5MG/ML 10ML VIAL 100 ML IV PRN ×3 (03:20→15:54)
[2021-10-26 05:36] LABS: BASOPHILS # (AUTO) 0.1 (0.0-0.1); BASOPHILS % 0.4 % (0.0-1.0); EOSINOPHILS # (AUTO) 0.3 (0.0-0.4); EOSINOPHILS % 0.9 % (0.0-6.0); HEMATOCRIT 29.4 % (38.2-49.6); HEMOGLOBIN 8.6 g/dL (14.0-18.0); LYMPHOCYTES # (AUTO) 1.5 (1.0-3.2); LYMPHOCYTES % 5.1 % (18.0-39.1); MEAN CORPUSCULAR HEMOGLOBIN 27.4 pg (28-32); MEAN CORPUSCULAR HGB CONC 29.3 g/dL (31-35); MEAN CORPUSCULAR VOLUME 93.6 fL (81-99); MONOCYTES # (AUTO) 2.9 (0.2-0.8); MONOCYTES % 9.9 % (4.4-11.3); NEUTROPHILS # (AUTO) 22.8 (2.1-6.9); NEUTROPHILS % 77.2 % (38.7-80.0); PLATELET COUNT 350 x10e3/uL (140-360); RED BLOOD COUNT 3.14 x10e6/uL (4.3-5.7); RED CELL DISTRIBUTION WIDTH 16.3 % (11.7-14.4)
[2021-10-26] MEDS: FENTANYL 2000MCG/NS 250 250 ML IV PRN ×2 (05:52→14:15)
[2021-10-26 06:12] LABS: ALBUMIN 1.1 g/dL (3.5-5.0); ALBUMIN/GLOBULIN RATIO 0.2 (0.8-2.0); ANION GAP 24.8 mmol/L (8-16); CALCIUM 7.3 mg/dL (8.4-10.2)
[2021-10-26 06:29] LABS: POTASSIUM 6.8 mmol/L (3.5-5.1)
[2021-10-26 06:41] LABS: CREATININE, SERUM 5.95 mg/dL (0.72-1.25)
[2021-10-26] MEDS ORDERED: VASOPRESSIN 60 UNIT in DEXTROSE 5% 50ML 57 ML IV PRN (08:30)
[2021-10-26] MEDS: POLYETHYLENE GLYCOL 3350 17 GM PACK PO SCH (09:00)
[2021-10-26] MEDS: ASCORBIC ACID 500 MG TAB PO SCH ×2 (09:10→16:19)
[2021-10-26] MEDS: ZINC SULFATE 50 MG CAP PO SCH (09:10)
[2021-10-26] MEDS: BALSAM PERU/CASTOR OIL 60 GM OINT...G. TP SCH (09:10)
[2021-10-26] MEDS: PIPERACILLIN/TAZOBACTAM 3.375 GM in SODIUM CHLORIDE 0.9% 50ML 50 ML IV SCH (09:10)
[2021-10-26] MEDS: FAMOTIDINE 20 MG/2 ML VIAL IV SCH ×2 (09:10→16:19)
[2021-10-26] MEDS ORDERED: ALBUMIN 25% 12.5GM 0.25 GM/ML BTL IV PRN (09:15)
[2021-10-26 10:09] LABS: ABG HCO3 23 mmol/L (22-26); ABG PCO2 73 mmHg (35-45); ABG PO2 54 mmHg (80-105); ABG TCO2 25
[2021-10-26] MEDS: METOCLOPRAMIDE HCL 10 MG/2ML VIAL IV SCH ×2 (11:58→17:21)
[2021-10-26 14:53] LABS: BAND NEUTROPHILS % (MANUAL) 4 %; LYMPHOCYTES % (MANUAL) 3 % (19-48); METAMYELOCYTES % (MANUAL) 5 % (0-0); MONOCYTES % (MANUAL) 9 % (3.4-9.0); MYELOCYTES % (MANUAL) 2 % (0-0); NEUTROPHILS % (MANUAL) 77 % (40-74)
[2021-10-26] MEDS: ENOXAPARIN 30 MG/0.3 ML SYR SC SCH (16:19)
[2021-10-26 16:20] LABS: ABG HCO3 25 mmol/L (22-26); ABG PCO2 64 mmHg (35-45); ABG PH 7.19 (7.35-7.45); ABG PO2 49 mmHg (80-105); ABG TCO2 26
== END 2021-10-26 19:02 | disposition expired | DRG 207 ==
LOC: EDSEX → ER 14:07 → ERHOLD 15:51 → EDSEX 15:51 → ICU 21:00 → IMCU 10-26 22:26 → ICU 10-26 22:26
PROVIDERS: ADMIT Family Medicine; ATTEND Family Medicine
PROC: 3E0333Z Introduction of Anti-inflammatory into Peripheral Vein, Percutaneous Approach (ICD-10-PCS; principal; 2021-10-12)
PROC: 02HV33Z Insertion of Infusion Device into Superior Vena Cava, Percutaneous Approach (ICD-10-PCS; 2021-10-13)
PROC: XW033E5 Introduction of Remdesivir Anti-infective into Peripheral Vein, Percutaneous Approach, New Technology Group 5 (ICD-10-PCS; 2021-10-14)
PROC: 5A1955Z Respiratory Ventilation, Greater than 96 Consecutive Hours (ICD-10-PCS; 2021-10-16)
PROC: 0BH18EZ Insertion of Endotracheal Airway into Trachea, Via Natural or Artificial Opening Endoscopic (ICD-10-PCS; 2021-10-16)
PROC: 03HC33Z Insertion of Infusion Device into Left Radial Artery, Percutaneous Approach (ICD-10-PCS; 2021-10-16)
PROC: 02HV33Z Insertion of Infusion Device into Superior Vena Cava, Percutaneous Approach (ICD-10-PCS; 2021-10-16)
PROC: 5A1D70Z Performance of Urinary Filtration, Intermittent, Less than 6 Hours Per Day (ICD-10-PCS; 2021-10-22)
PROC: 3E043XZ Introduction of Vasopressor into Central Vein, Percutaneous Approach (ICD-10-PCS; 2021-10-24)
DX: U07.1 COVID-19 (principal); J96.01 Acute respiratory failure with hypoxia; J12.82 Pneumonia due to coronavirus disease 2019; R65.21 Severe sepsis with septic shock; A41.89 Other specified sepsis; N17.0 Acute kidney failure with tubular necrosis; J15.6 Pneumonia due to other Gram-negative bacteria; N17.9 Acute kidney failure, unspecified; E87.2 Acidosis; M35.81 Multisystem inflammatory syndrome; E66.9 Obesity, unspecified; I12.9 Hypertensive chronic kidney disease with stage 1 through stage 4 chronic kidney disease, or unspecified chronic kidney disease; N18.9 Chronic kidney disease, unspecified; E78.5 Hyperlipidemia, unspecified; E87.6 Hypokalemia; E87.5 Hyperkalemia; E11.65 Type 2 diabetes mellitus with hyperglycemia; E11.22 Type 2 diabetes mellitus with diabetic chronic kidney disease; E83.42 Hypomagnesemia; R60.1 Generalized edema; I45.10 Unspecified right bundle-branch block; Z66 Do not resuscitate; Z68.38 Body mass index [BMI] 38.0-38.9, adult; Z79.84 Long term (current) use of oral hypoglycemic drugs
CPT/HCPCS: 31500; 36415; 36569; 36600; 71045; 74018; 80053; 80061; 82550; 82553; 82805; 82948; 83036; 83735; 83880; 84100; 84484; 85025; 85610; 85730; 86141; 86705; 86706; 87040; 87070; 87186; 87205; 87340; 90962; 93005; 94002; 94003; 94799; 96372; 99251; 99284; J0248; J0330; J0456; J0696; J1100; J1644; J1650; J1815; J1817; J1940; J2020; J2150; J2250; J2543; J2765; J3475; J7030; J7050; J7070; U0002